=== PATIENT | female | born 1940 | race Two or more races ===

== ENCOUNTER 2021-01-01 14:38 | Inpatient (IN) | payer MEDICARE, OTHER ==
[~2021-01-01] VITALS: Ht 165.1 cm; Wt 97.5 kg
--- NOTE | 2021-01-01 14:50 | NUR ---
BIBRA FROM HOME TO ER BED 5. AAOX3. SOB AND SATTING @ 87% ON RA. PER EMS REPORT, PT HAS BEEN PROGRESSIVELY GETTING WORST IN THE PAST 5 DAYS. PT WAS NOTED 87% ON RA. PLACED ON O2 VIA NC @ 4LPM SATTING @ 98%. PT WAS REPORTED TO HAVE HAD COVID EXPOSURE RECENTLY. WAS AT THE BEDSIDE FOR EVAL. ORDERS RECEIVED, NOTED AND CARRIED OUT. IV LINE ESTABLISHED ON R HAND 20G. BLOOD DRAWN AND ON MONITOR
[2021-01-01 15:19] LABS: BASOPHILS # (AUTO) 0.1 K/uL (0.0-0.2); BASOPHILS % (AUTO) 0.6 % (0.0-2.0); HEMATOCRIT 33 % (33-45); HEMOGLOBIN 11.1 g/dL (11.5-14.8); LYMPHOCYTES # (AUTO) 0.8 K/uL (0.8-4.8); LYMPHOCYTES % (AUTO) 8.5 % (20.0-44.0); MEAN CORPUSCULAR HGB CONC 34 g/dl (31.0-36.0); MEAN CORPUSCULAR VOLUME 87 fL (82-100); MONOCYTES # (AUTO) 0.2 K/uL (0.1-1.30); MONOCYTES % (AUTO) 1.8 % (2.0-12.0); NEUTROPHILS # (AUTO) 8.1 K/uL (1.8-8.9); NEUTROPHILS % (AUTO) 89.1 % (43.0-81.0); PLATELET COUNT (AUTO) 243 K/uL (150-450); RED BLOOD CELL COUNT(AUTO) 3.78 MIL/uL (4.0-5.2); WHITE BLOOD COUNT (AUTO) 9.1 K/uL (4.3-11.0)
--- NOTE | 2021-01-01 15:30 | NUR ---
CALLED NURSING SUP FOR TELE BED.
[2021-01-01 15:38] LABS: ALBUMIN 2.5 g/dL (3.4-5.0); ALKALINE PHOSPHATASE 48 U/L (46-116); ASPARTATE AMINOTRANSFERASE 35 U/L (15-37); BILIRUBIN,DIRECT 0.1 mg/dL (0.0-0.2); BILIRUBIN,TOTAL 0.2 mg/dL (0.2-1.0); CALCIUM, SERUM 7.4 mg/dL (8.5-10.1); CARBON DIOXIDE 28 mmol/L (21-32); CHLORIDE 84 mmol/L (98-107); CREATININE 0.8 mg/dL (0.6-1.3); GLUCOSE 172 mg/dL (74-106); POTASSIUM 3.1 mmol/L (3.5-5.1); SODIUM SERUM 123 mmol/L (136-145); TOTAL PROTEIN, SERUM 7.2 g/dL (6.4-8.2); UREA NITROGEN, BLOOD 9 mg/dL (7-18)
[2021-01-01] MEDS ORDERED: ESOM40CA PO (15:52)
[2021-01-01] MEDS ORDERED: METO50TA16 PO (15:52)
[2021-01-01] MEDS ORDERED: FURO40TA5 PO (15:52)
[2021-01-01] MEDS ORDERED: PRED10TA PO (15:52)
[2021-01-01] MEDS ORDERED: AMLO-213 PO (15:52)
[2021-01-01] MEDS ORDERED: ATOR40TA PO (15:52)
[2021-01-01] MEDS ORDERED: GABA300C PO (15:52)
[2021-01-01] MEDS ORDERED: OLME1TAB22 PO (15:52)
[2021-01-01] MEDS ORDERED: ASCO500T22 PO (15:52)
[2021-01-01] MEDS ORDERED: LEVO88TA5 PO (15:52)
[2021-01-01] MEDS ORDERED: ASPI-1420 PO (15:52)
[2021-01-01 15:54] LABS: ALANINE AMINOTRANSFERASE 22 U/L (12-78)
[2021-01-01 16:03] LABS: D-DIMER 0.55 mg/L(FEU (0.17-0.50)
--- NOTE | 2021-01-01 16:27 | NUR ---
PAGED DR. NAIK.
[2021-01-01] MEDS ORDERED: FUROSEMIDE 40 MG/4 ML VIAL ONE (16:41)
[2021-01-01] MEDS ORDERED: FUROSEMIDE 40 MG/4 ML VIAL IV ONE (17:00)
--- NOTE | 2021-01-01 17:04 | NUR ---
ROOM ASSIGNEMENT: 117-1 TELE
[2021-01-01 17:08] LABS: BAND % (MANUAL) 2 % (0.0-5.0); LYMPHOCYTES % (MANUAL) 10 % (16-48); MONOCYTES % (MANUAL) 2 % (0-11.0); NEUTROPHILS % (MANUAL) 86 (42-76)
--- NOTE | 2021-01-01 17:55 | NUR ---
PT TRANSPROTED TO UNIT IN [facility] EMT AND RN AT BEDSIDE W/ ACLS PROTOCOL. REPORT GIVEN TO HAI CRAWLEY FOR SHAILESH. PT AMBULATED FROM [facility] TO BED W/O ASSIST ON STEADY GAIT.
[2021-01-01 18:00] VITALS: BP 118/64
[2021-01-01] MEDS ORDERED: ZOLPIDEM TARTRATE 5 MG TABLET PO PRN (18:30)
[2021-01-01] MEDS ORDERED: MAG HYDROX/AL HYDROX/SIMETH 30 ML UDC PO PRN (18:30)
[2021-01-01] MEDS ORDERED: MAGNESIUM HYDROXIDE 30 ML UDC PO PRN (18:30)
[2021-01-01] MEDS ORDERED: ACETAMINOPHEN 325 MG TABLET PO PRN (18:30)
[2021-01-01] MEDS ORDERED: Z GUARD REMEDY 2 OZ OINT TP PRN (18:30)
--- NOTE | 2021-01-01 19:30 | NUR ---
BIAS MACHINE OPERATOR NOTES PT RECEIVED A/O X3 BURUNDIAN SPEAKING ONLY UNDERSTANDS VERY BASIC DOMINICAN. PT IN BED NO APPARENT RESPIRATORY DISTRESS NOTED ON 4L OF OXYGEN VIA NASAL CANULA TOLERATING WELL. O2 94%. NO PAIN REPORTED OR OBSERVED AT THIS TIME. PT FULL SKIN ASSESSMENT WAS NOT ABLE TO BE DONE PT REFUSED TO TAKE OFF HER UNDER GARMENT RISK AND BENEFITS EXPLAINED X 3 REFUSED X3. PT ON TELE MONITOR SR. PT ORIENTED TO ROOM AND UNIT. BED IN LOWEST POSITION AND BILATERAL SIDE RAILS UP FOR SAFETY. HOB ELEVATED FOR ASPIRATION PRECAUTIONS. PT BILATERAL LUNG SOUNDS AUSCULTATED NOTED FINE CRACKLES. NO IV SITE PRESENT INSERTED IV ONE ATTEMPT FOREARM 2OG FLUSHING WELL SALINE LOCKED. CALL LIGHT WITHIN REACH PT INSTRUCTED TO USE CALL LIGHT TO CALL NURSE AND SUPERVISOR COIN MACHINE FOR ANY THING SHE NEEDS PT ON DROPLET PRECAUTIONS PRECAUTIONS MAINTAINED AND FOLLOWED AT ALL TIMES. WILL CONTINUE TO MONITOR PT.
[2021-01-01] MEDS: CEFTRIAXONE 1 G in IV D5W 50 ML IV SCH (20:38)
[2021-01-01] MEDS: AZITHROMYCIN 500 MG in IV D5W 250 ML IV SCH (21:22)
[2021-01-01] MEDS: ENOXAPARIN SODIUM 40 MG/0.4 ML DISP.SYRIN SQ SCH (21:23)
[2021-01-01] MEDS ORDERED: POTASSIUM CHLORIDE 20 MEQ TAB.PRT.SR PO ONE (22:36)
[2021-01-02] MEDS: ONDANSETRON HCL/PF 4 MG/2 ML VIAL IVP PRN ×2 (01:35→11:33)
[2021-01-02 02:47] VITALS: BP 158/93
[2021-01-02 04:00] VITALS: BP 143/78
[2021-01-02 07:05] LABS: BASOPHILS % (AUTO) 0.2 % (0.0-2.0); EOSINOPHILS % (AUTO) 0.1 % (0.0-6.0); HEMATOCRIT 33 % (33-45); LYMPHOCYTES # (AUTO) 1.3 K/uL (0.8-4.8); LYMPHOCYTES % (AUTO) 14.3 % (20.0-44.0); MEAN CORPUSCULAR HGB CONC 34 g/dl (31.0-36.0); MEAN CORPUSCULAR VOLUME 87 fL (82-100); MONOCYTES # (AUTO) 0.2 K/uL (0.1-1.30); MONOCYTES % (AUTO) 2.4 % (2.0-12.0); NEUTROPHILS # (AUTO) 7.4 K/uL (1.8-8.9); PLATELET COUNT (AUTO) 245 K/uL (150-450); RED BLOOD CELL COUNT(AUTO) 3.76 MIL/uL (4.0-5.2); WHITE BLOOD COUNT (AUTO) 8.9 K/uL (4.3-11.0)
[2021-01-02 07:39] LABS: CALCIUM, SERUM 7.5 mg/dL (8.5-10.1); CREATININE 0.9 mg/dL (0.6-1.3); MAGNESIUM 1.4 mg/dL (1.8-2.4); PHOSPHORUS 1.7 mg/dL (2.5-4.9); POTASSIUM 3.1 mmol/L (3.5-5.1)
--- NOTE | 2021-01-02 07:45 | NUR ---
RN NOTE PATIENT IS IN BED WITH HOB AT SEMI FOWLERS POSITION. PATIENT IS ON 4L NC WITH NO SIGNS OF RESPIRATORY DISTRESS. PATIENT IS AOX4. RFA #20G IS PATENT AND INTACT. BED IS LOCKED IN THE LOWEST POSITION, 3 GUARD RAILS RAISED, CALL [place] WITHIN REACH, AND ALL HOSPITAL SAFETY PRECAUTIONS ARE BEING FOLLOWED. WILL CONTINUE TO MONITOR THROUGHOUT SHIFT.
[2021-01-02 07:51] LABS: THYROID STIMULATING HORMONE 3.373 uIU/mL (0.358-3.74)
[2021-01-02 08:00] VITALS: BP 167/78
[2021-01-02] MEDS: FUROSEMIDE 40 MG/4 ML VIAL IV SCH (08:29)
[2021-01-02] MEDS: DEXAMETHASONE SOD PHOSPHATE 10 MG/ML VIAL IV SCH (08:29)
[2021-01-02] MEDS: PANTOPRAZOLE 40 MG TABLET.DR PO SCH (08:29)
[2021-01-02] MEDS: POTASSIUM CHLORIDE 20 MEQ TAB.PRT.SR PO SCH ×2 (09:30→09:40)
[2021-01-02] MEDS: K PHOS NEUTRAL 250 MG TABLET PO ONE ×2 (09:30→09:40)
[2021-01-02] MEDS: Magnesium 1GM/D5W 100ML PREMIX 100 ML IV SCH ×4 (10:22→13:32)
--- NOTE | 2021-01-02 11:37 | NUR ---
RN NOTE PATIENT COMPLAINING OF NAUSEA. ADMINISTERED PRN ZOFRAN. WILL CONTINUE TO MONITOR.
[2021-01-02 12:00] VITALS: BP 166/82
--- NOTE | 2021-01-02 12:53 | NUR ---
RN NOTE NOTIFIED DR. NAIK OF BP 166/80. OKAY TO PLACE ORDER FOR HYDRALAZINE 25MG PO Q4H.
[2021-01-02] MEDS: hydrALAZINE HCL 25 MG TABLET PO PRN (13:04)
[2021-01-02 16:00] VITALS: BP 146/76
[2021-01-02 16:34] LABS: IRON, SERUM 32 ug/dl (50-175); TOTAL IRON BINDING CAPACITY 204 ug/dl (250-450)
[2021-01-02 16:42] LABS: FERRITIN 491 ng/mL (8-388)
[2021-01-02 16:43] LABS: C-REACTIVE PROTEIN < 0.2 mg/dL (0.0-0.9)
[2021-01-02 16:48] LABS: THYROID STIMULATING HORMONE 3.362 uIU/mL (0.358-3.74)
[2021-01-02] MEDS ORDERED: REMDESIVIR (CHARGED) 200 MG, *LOADING DOSE 1 EA in IV NS 0.9% 210 ML IV ONE (18:00)
--- NOTE | 2021-01-02 18:52 | NUR ---
RN NOTE PATIENT IS IN BED WITH HOB AT SEMI FOWLERS POSITION. PATIENT IS ON 4L NC WITH NO SIGNS OF RESPIRATORY DISTRESS. PATIENT IS AOX4. RFA #20G IS PATENT AND INTACT. BED IS LOCKED IN THE LOWEST POSITION, 3 GUARD RAILS RAISED, CALL [place] WITHIN REACH, AND ALL HOSPITAL SAFETY PRECAUTIONS ARE BEING FOLLOWED. ALL DUE MEDS GIVEN AND PATIENT REMAINED STABLE THROUGHOUT SHIFT. WILL ENDORSE TO PRODUCTION CELL LEADER RN.
[2021-01-02] MEDS: AZITHROMYCIN 500 MG in IV D5W 250 ML IV SCH (19:29)
[2021-01-02 20:00] VITALS: BP 150/82
[2021-01-02] MEDS: CEFTRIAXONE 1 G in IV D5W 50 ML IV SCH (20:43)
[2021-01-02] MEDS: ENOXAPARIN SODIUM 40 MG/0.4 ML DISP.SYRIN SQ SCH (20:45)
[2021-01-03] VITALS: BP 150/82
[2021-01-03 04:00] VITALS: BP 136/73
[2021-01-03 06:18] LABS: BASOPHILS % (AUTO) 0.2 % (0.0-2.0); EOSINOPHILS % (AUTO) 0.1 % (0.0-6.0); HEMATOCRIT 32 % (33-45); LYMPHOCYTES # (AUTO) 0.9 K/uL (0.8-4.8); LYMPHOCYTES % (AUTO) 13.3 % (20.0-44.0); MEAN CORPUSCULAR HGB CONC 34 g/dl (31.0-36.0); MEAN CORPUSCULAR VOLUME 86 fL (82-100); MONOCYTES # (AUTO) 0.3 K/uL (0.1-1.30); NEUTROPHILS # (AUTO) 5.5 K/uL (1.8-8.9); NEUTROPHILS % (AUTO) 82.4 % (43.0-81.0); PLATELET COUNT (AUTO) 245 K/uL (150-450); RED BLOOD CELL COUNT(AUTO) 3.75 MIL/uL (4.0-5.2); WHITE BLOOD COUNT (AUTO) 6.7 K/uL (4.3-11.0)
[2021-01-03 07:18] LABS: ALBUMIN 2.2 g/dL (3.4-5.0); BILIRUBIN,TOTAL 0.2 mg/dL (0.2-1.0); CALCIUM, SERUM 7.4 mg/dL (8.5-10.1); MAGNESIUM 2.5 mg/dL (1.8-2.4); PHOSPHORUS 2.2 mg/dL (2.5-4.9); POTASSIUM 3.1 mmol/L (3.5-5.1); TOTAL PROTEIN, SERUM 6.9 g/dL (6.4-8.2)
[2021-01-03 08:00] VITALS: BP 123/73
[2021-01-03] MEDS: FUROSEMIDE 40 MG/4 ML VIAL IV SCH (08:19)
[2021-01-03] MEDS: PANTOPRAZOLE 40 MG TABLET.DR PO SCH (08:19)
[2021-01-03] MEDS: DEXAMETHASONE SOD PHOSPHATE 10 MG/ML VIAL IV SCH (08:19)
[2021-01-03] MEDS ORDERED: K PHOS NEUTRAL 250 MG TABLET PO ONE (08:30)
[2021-01-03] MEDS ORDERED: POTASSIUM CHLORIDE 20 MEQ TAB.PRT.SR PO ONE (08:30)
[2021-01-03] MEDS ORDERED: NEUTRA PHOS 1 POWD.PACKET PO ONE (09:00)
[2021-01-03] MEDS ORDERED: POTASSIUM CHLORIDE 20 MEQ POWDER PACKET PO ONE (09:00)
[2021-01-03 09:41] LABS: CREATININE 0.9 mg/dL (0.6-1.3)
[2021-01-03 12:00] VITALS: BP 122/96
[2021-01-03] MEDS: ONDANSETRON HCL/PF 4 MG/2 ML VIAL IVP PRN (13:07)
[2021-01-03 16:00] VITALS: BP 113/66
--- NOTE | 2021-01-03 16:00 | NUR ---
SPO2 LEVEL ON R/A SPO2 LESS < 87% ON R/A AT REST
[2021-01-03] MEDS: REMDESIVIR (CHARGED) 100 MG in IV NS 0.9% 230 ML IV SCH (18:01)
--- NOTE | 2021-01-03 18:40 | NUR ---
RN NOTE PATIENT IS IN BED WITH HOB AT SEMI FOWLERS POSITION. PATIENT IS ON 4L NC WITH NO SIGNS OF RESPIRATORY DISTRESS. PATIENT IS AOX4. BED IS LOCKED IN THE LOWEST POSITION, 3 GUARD RAILS RAISED, CALL [place] WITHIN REACH, AND ALL HOSPITAL SAFETY PRECAUTIONS ARE BEING FOLLOWED. ALL DUE MEDS GIVEN AND PATIENT REMAINED STABLE THROUGHOUT SHIFT. WILL ENDORSE TO MARINE EQUIPMENT RESEARCH ENGINEER RN.
[2021-01-03 20:00] VITALS: BP 142/75
--- NOTE | 2021-01-03 21:00 | NUR ---
RN NOTES, MIDLINE NURSE AT PATIENT'S ROOM, SATISFACTORY INSERTION OF CARI MIDLINE 18G, PATENT AND INTACT, PATIENT TOLERATED PROCEDURE WELL.
[2021-01-03] MEDS: AZITHROMYCIN 500 MG in IV D5W 250 ML IV SCH (21:09)
[2021-01-03] MEDS: ENOXAPARIN SODIUM 40 MG/0.4 ML DISP.SYRIN SQ SCH (21:12)
[2021-01-03] MEDS: CEFTRIAXONE 1 G in IV D5W 50 ML IV SCH (21:59)
[2021-01-04] VITALS (7 sets, daily range): BP systolic 122–150; BP diastolic 66–81
--- NOTE | 2021-01-04 06:34 | NUR ---
RN NOTE PATIENT IS IN BED AOX4, NO SOB/ACUTE DISTRESS NOTED, WITH OPTIMAL O2 SAT LEVEL, ,NO SIGNIFICANT CHANGE IN CONDITION DURING THE NIGHT, BED IS LOCKED IN THE LOWEST POSITION, CALL LIGHT WITHIN REACH, REMAINED STABLE THROUGHOUT SHIFT, WILL ENDORSE CONTINUITY OF CARE TO ONCOMING NURSE.
[2021-01-04 07:30] LABS: BASOPHILS % (AUTO) 0.3 % (0.0-2.0); EOSINOPHILS % (AUTO) 0.4 % (0.0-6.0); HEMATOCRIT 34 % (33-45); HEMOGLOBIN 11.4 g/dL (11.5-14.8); LYMPHOCYTES # (AUTO) 1.2 K/uL (0.8-4.8); LYMPHOCYTES % (AUTO) 14.2 % (20.0-44.0); MEAN CORPUSCULAR HGB CONC 33 g/dl (31.0-36.0); MEAN CORPUSCULAR VOLUME 87 fL (82-100); MONOCYTES # (AUTO) 0.4 K/uL (0.1-1.30); MONOCYTES % (AUTO) 4.7 % (2.0-12.0); NEUTROPHILS # (AUTO) 6.8 K/uL (1.8-8.9); NEUTROPHILS % (AUTO) 80.4 % (43.0-81.0); PLATELET COUNT (AUTO) 357 K/uL (150-450); RED BLOOD CELL COUNT(AUTO) 3.94 MIL/uL (4.0-5.2); WHITE BLOOD COUNT (AUTO) 8.5 K/uL (4.3-11.0)
--- NOTE | 2021-01-04 08:00 | NUR ---
SPRAYING MACHINE OPERATOR OPENING NOTES RECEIVED PATIENT AWAKE IN BED. ALERT AND ORIENTED X3. NO SIGNS OR SYMPTOMS OF DISTRESS NOTED. NO SOB. NO COMPLAINTS OF PAIN AT THIS TIME. IV ACCESS CARI MIDLINE PATENT AND INTACT. SAFETY MEASURES IN PLACE WITH BED AT LOW POSITION, SIDE RAILS UP X2. CALL LIGHT IS WITHIN REACH. WILL CONTINUE TO MONITOR PATIENT THROUGHOUT SHIFT.
[2021-01-04 08:15] LABS: ALBUMIN 2.1 g/dL (3.4-5.0); BILIRUBIN,DIRECT 0.1 mg/dL (0.0-0.2); BILIRUBIN,TOTAL 0.2 mg/dL (0.2-1.0); CREATININE 0.9 mg/dL (0.6-1.3); MAGNESIUM 2.2 mg/dL (1.8-2.4); PHOSPHORUS 1.4 mg/dL (2.5-4.9); TOTAL PROTEIN, SERUM 6.4 g/dL (6.4-8.2)
[2021-01-04 08:21] LABS: POTASSIUM 2.8 mmol/L (3.5-5.1)
[2021-01-04] MEDS: PANTOPRAZOLE 40 MG TABLET.DR PO SCH (08:58)
[2021-01-04] MEDS ORDERED: K PHOS NEUTRAL 250 MG TABLET PO ONE (09:00)
[2021-01-04] MEDS: POTASSIUM CHLORIDE 20 MEQ TAB.PRT.SR PO SCH ×3 (09:10→11:05)
[2021-01-04] MEDS: DEXAMETHASONE SOD PHOSPHATE 10 MG/ML VIAL IV SCH (09:11)
--- NOTE | 2021-01-04 10:12 | NUR ---
potassium was 2.5 was notified waiting for returning call back
[2021-01-04] MEDS: POTASSIUM CL. PREMIX PERIPHER. 50 ML IV SCH ×4 (11:49→15:02)
[2021-01-04] MEDS ORDERED: POTASSIUM CHLORIDE 20 MEQ TAB.PRT.SR PO ONE (12:00)
[2021-01-04] MEDS: REMDESIVIR (CHARGED) 100 MG in IV NS 0.9% 230 ML IV SCH (18:09)
--- NOTE | 2021-01-04 18:43 | NUR ---
TIPPLE MECHANIC CLOSING NOTES PATIENT IS AWAKE IN BED. ALERT AND ORIENTED X 4, WELSH SPEAKING. NO SIGNS OR SYMPTOMS OF DISTRESS NOTED. NO SOB. NO COMPLAINTS OF PAIN AT THIS TIME. IV ACCESS CARI MIDLINE PATENT AND INTACT. SAFETY MEASURES IN PLACE WITH BED AT LOW POSITION, SIDE RAILS UP X2. CALL LIGHT AND BED SIDE TABLE IS WITHIN REACH. ALL NEEDS MET THROUGHOUT SHIFT. WILL ENDORSE CONTINUITY OF CARE TO NEXT SHIFT NURSE.
[2021-01-04] MEDS: AZITHROMYCIN 500 MG in IV D5W 250 ML IV SCH (19:45)
--- NOTE | 2021-01-04 20:01 | NUR ---
RN NOTE PATIENT ALERT AND ORIENTED X3. ON O2 4L VIA NASAL CANNULA, NO SIGNS OF SHORTNESS OF BREATH. NO SIGNS OF DISCOMFORT. IV ACCESS ON CARI MIDLINE, PATENT AND INTACT. BED LOCKED AND IN LOWEST POSITION. CALL LIGHT WITHIN REACH. ALL NEEDS ATTENDED PROMPTLY.
[2021-01-04] MEDS: CEFTRIAXONE 1 G in IV D5W 50 ML IV SCH (20:45)
[2021-01-04] MEDS: ENOXAPARIN SODIUM 40 MG/0.4 ML DISP.SYRIN SQ SCH (20:47)
[2021-01-05] VITALS: BP 139/70
[2021-01-05 04:00] VITALS: BP 128/78
[2021-01-05 06:23] LABS: BASOPHILS % (AUTO) 0.3 % (0.0-2.0); EOSINOPHILS % (AUTO) 1.2 % (0.0-6.0); HEMATOCRIT 34 % (33-45); HEMOGLOBIN 11.3 g/dL (11.5-14.8); LYMPHOCYTES # (AUTO) 1.9 K/uL (0.8-4.8); LYMPHOCYTES % (AUTO) 17.7 % (20.0-44.0); MEAN CORPUSCULAR HGB CONC 33 g/dl (31.0-36.0); MEAN CORPUSCULAR VOLUME 88 fL (82-100); MONOCYTES # (AUTO) 0.5 K/uL (0.1-1.30); MONOCYTES % (AUTO) 5.2 % (2.0-12.0); NEUTROPHILS % (AUTO) 75.6 % (43.0-81.0); PLATELET COUNT (AUTO) 397 K/uL (150-450); WHITE BLOOD COUNT (AUTO) 10.5 K/uL (4.3-11.0)
[2021-01-05 06:34] LABS: ALBUMIN 2.2 g/dL (3.4-5.0); BILIRUBIN,TOTAL 0.2 mg/dL (0.2-1.0); CALCIUM, SERUM 7.4 mg/dL (8.5-10.1); CREATININE 0.8 mg/dL (0.6-1.3); MAGNESIUM 2.4 mg/dL (1.8-2.4); PHOSPHORUS 1.4 mg/dL (2.5-4.9); POTASSIUM 3.7 mmol/L (3.5-5.1)
--- NOTE | 2021-01-05 06:50 | NUR ---
RN NOTE PATIENT ALERT AND ORIENTED X3. ON O2 4L VIA NASAL CANNULA, NO SIGNS OF SHORTNESS OF BREATH. IV ACCESS ON CARI MIDLINE, PATENT AND INTACT. NO SIGNIFICANT CHANGES DURING THIS SHIFT. BED LOCKED AND IN LOWEST POSITION. CALL LIGHT WITHIN REACH. WILL ENDORSE TO AM SHIFT.
--- NOTE | 2021-01-05 07:30 | NUR ---
RN OPENING NOTES Patient is alert and oriented. Breathing even and unlabored. Lung sounds cta. Patient is on 4 lpm via n/c with 02 saturation of 98% No c/o pain or discomfort. HOB kept elevated. Call light with in reach.
[2021-01-05 08:00] VITALS: BP 150/74
[2021-01-05] MEDS ORDERED: Sodium Phosphate 15 MMOL in IV NS 0.9% 245 ML IV SCH (08:30)
[2021-01-05] MEDS ORDERED: POTASSIUM CHLORIDE 20 MEQ TAB.PRT.SR PO ONE (09:30)
[2021-01-05] MEDS: DEXAMETHASONE SOD PHOSPHATE 10 MG/ML VIAL IV SCH (09:34)
[2021-01-05] MEDS: FUROSEMIDE 20 MG/2 ML VIAL IV SCH (09:34)
[2021-01-05] MEDS: PANTOPRAZOLE 40 MG TABLET.DR PO SCH (09:35)
[2021-01-05 12:00] VITALS: BP 150/92
[2021-01-05] MEDS ORDERED: Sodium Phosphate 30 MMOL in IV NS 0.9% 250 ML IV SCH (13:00)
[2021-01-05 16:05] VITALS: BP 159/76
[2021-01-05] MEDS: REMDESIVIR (CHARGED) 100 MG in IV NS 0.9% 230 ML IV SCH (18:00)
--- NOTE | 2021-01-05 18:54 | NUR ---
RN OPENING NOTES Patient is alert and oriented. Breathing even and unlabored. Lung sounds cta. Patient is on 4 lpm via n/c with 02 saturation of 98% No c/o pain or discomfort. HOB kept elevated. Call light with in reach.Will endorse to next shift for SHAILESH. Addendum: 01/05/21 at 1856 by MELISSA LUCIA RN ADDENDUM RN CLOSING NOTES
--- NOTE | 2021-01-05 19:50 | NUR ---
RN NOTE PATIENT ALERT AND ORIENTED X3. CONTINUES ON O2 4L VIA NASAL CANNULA, NO SIGNS OF RESPIRATORY DISTRESS. NO SIGNS OF DISCOMFORT AT THIS TIME. WITH CARI MIDLINE, PATENT AND INTACT. NO SIGNS OF INFILTRATION. BED LOCKED AND IN LOWEST POSITION. CALL LIGHT WITHIN REACH. ALL NEEDS ANTICIPATED.
[2021-01-05 20:00] VITALS: BP 158/77
[2021-01-05] MEDS: AZITHROMYCIN 500 MG in IV D5W 250 ML IV SCH (20:01)
[2021-01-05] MEDS: CEFTRIAXONE 1 G in IV D5W 50 ML IV SCH (21:15)
[2021-01-05] MEDS: ENOXAPARIN SODIUM 40 MG/0.4 ML DISP.SYRIN SQ SCH (21:17)
[2021-01-06] VITALS: BP 164/79
[2021-01-06 04:00] VITALS: BP 148/69
[2021-01-06 06:32] LABS: BASOPHILS % (AUTO) 0.1 % (0.0-2.0); HEMATOCRIT 31 % (33-45); HEMOGLOBIN 10.3 g/dL (11.5-14.8); LYMPHOCYTES # (AUTO) 1.6 K/uL (0.8-4.8); LYMPHOCYTES % (AUTO) 16.1 % (20.0-44.0); MEAN CORPUSCULAR HGB CONC 34 g/dl (31.0-36.0); MEAN CORPUSCULAR VOLUME 88 fL (82-100); MONOCYTES # (AUTO) 0.6 K/uL (0.1-1.30); MONOCYTES % (AUTO) 6.3 % (2.0-12.0); NEUTROPHILS # (AUTO) 7.3 K/uL (1.8-8.9); NEUTROPHILS % (AUTO) 75.5 % (43.0-81.0); PLATELET COUNT (AUTO) 398 K/uL (150-450); WHITE BLOOD COUNT (AUTO) 9.7 K/uL (4.3-11.0)
--- NOTE | 2021-01-06 06:53 | NUR ---
RN NOTE PATIENT RESTING IN BED COMFORTABLY. ON O2 4L VIA NASAL CANNULA, NO SIGNS OF RESPIRATORY DISTRESS. WITH CARI MIDLINE, PATENT AND INTACT. NO SIGNS OF INFILTRATION. ASSISTED PATIENT TO RESTROOM X2. ALL NEEDS ATTENDED PROMPTLY. NO SIGNIFICANT CHANGES DURING THIS SHIFT. BED LOCKED AND IN LOWEST POSITION. CALL LIGHT WITHIN REACH. WILL ENDORSE TO AM SHIFT.
[2021-01-06 07:31] LABS: BILIRUBIN,TOTAL 0.1 mg/dL (0.2-1.0); CREATININE 0.7 mg/dL (0.6-1.3); POTASSIUM 3.8 mmol/L (3.5-5.1); TOTAL PROTEIN, SERUM 6.5 g/dL (6.4-8.2)
--- NOTE | 2021-01-06 07:44 | NUR ---
RN OPENING NOTES Patient is alert and oriented. Breathing even and unlabored. Lung sounds cta. Patient is on 4 lpm via n/c with 02 saturation of 96% No c/o pain or discomfort. HOB kept elevated. Call light with in reach. Will continue to monitor.
[2021-01-06 08:00] VITALS: BP 152/80
[2021-01-06] MEDS: FUROSEMIDE 20 MG/2 ML VIAL IV SCH (08:25)
[2021-01-06] MEDS: DEXAMETHASONE SOD PHOSPHATE 10 MG/ML VIAL IV SCH (08:26)
[2021-01-06] MEDS: PANTOPRAZOLE 40 MG TABLET.DR PO SCH (08:26)
[2021-01-06] MEDS ORDERED: FUROSEMIDE 20 MG/2 ML VIAL IV SCH (09:00)
[2021-01-06] MEDS ORDERED: FUROSEMIDE 40 MG TABLET PO SCH (09:00)
[2021-01-06] MEDS: ASPIRIN EC 81 MG TABLET.DR PO SCH (10:12)
[2021-01-06] MEDS: AMLODIPINE BESYLATE 10 MG TABLET PO SCH (10:12)
[2021-01-06] MEDS: METOPROLOL TARTRATE 50 MG TABLET PO SCH ×2 (10:12→17:37)
[2021-01-06] MEDS: ASCORBIC ACID 500 MG TABLET PO SCH (10:12)
[2021-01-06] MEDS: GABAPENTIN 300 MG CAPSULE PO SCH ×2 (10:13→17:37)
[2021-01-06] MEDS: LEVOTHYROXINE SODIUM 88 MCG TABLET PO SCH (10:13)
[2021-01-06] MEDS ORDERED: FUROSEMIDE 20 MG/2 ML VIAL IV ONE (11:00)
[2021-01-06 12:00] VITALS: BP 154/80
[2021-01-06 16:00] VITALS: BP 139/79
[2021-01-06] MEDS: REMDESIVIR (CHARGED) 100 MG in IV NS 0.9% 230 ML IV SCH (17:41)
--- NOTE | 2021-01-06 19:03 | NUR ---
RN OPENING NOTES Patient is alert and oriented. Patient sitting at the edge of bed. Family provided breakfast , lunch and dinner and patient had 75 % intake of all meals provided. Breathing even and unlabored. Lung sounds cta. Patient is on 4 lpm via n/c with 02 saturation of 95% No c/o pain or discomfort. HOB kept elevated. Call light with in reach. Will continue to monitor. Addendum: 01/06/21 at 1904 by MELISSA LUCIA RN ADDENDUM CLOSING NOTES
--- NOTE | 2021-01-06 19:23 | NUR ---
Rn note spoke with giselle granddaughter, regarding pt and possible discharge. no order noted yet, per giselle would like to be notified as soon as possible for any new info and plan of care. [phone]
--- NOTE | 2021-01-06 19:45 | NUR ---
RN OPENING NOTE RECD PT IN BED. AWAKE A/O X4. FRISIAN SPEAKING. MINIMAL FRENCH, ABLE TO MAKE NEEDS KNOWN. PT IS ON ISOLATION FOR POSITIVE COVID RESULT. PT IS ON 3L OF O2 VIA NASAL CANNULA, PT TOLERATING, NO SOB OR RESP DISTRESS NOTED. PT IS ON TELEMETRY MONITORING. PT IS NSR WITH HR OF 65 AT THIS TIME. PT DENIES PAIN. PT HAS IV CARI MIDLINE, FLUSHED ASEPTICALLY. NO S/S OF INFILTRATION NOTED. PT IS AMBULATORY WITH STEADY GAIT ALL NEEDS ATTENDED AT THIS TIME. SAFETY MEASURES IN PLACE. HOB ELEVATED. SIDE RAILS UP X2 BED LOCKED IN LOWEST POSITION, BED ALARM ON. CALL LIGHT WITHIN REACH, WILL CONT TO MONITOR THROUGHOUT SHIFT.
[2021-01-06 20:00] VITALS: BP 139/79
[2021-01-06] MEDS: ENOXAPARIN SODIUM 40 MG/0.4 ML DISP.SYRIN SQ SCH (21:18)
[2021-01-06] MEDS ORDERED: ATORVASTATIN 40 MG TABLET PO SCH (22:00)
[2021-01-07] VITALS: BP 145/74
--- NOTE | 2021-01-07 01:30 | NUR ---
RN NOTE O2 TITRATED DOWN TO 2L AT THIS TIME O2 97% TOLERATING WELL, NO RES DISTRESS BREATHING EVEN AND UNLABORED. WILL CONT TO MONITOR.
[2021-01-07 04:00] VITALS: BP 163/80
[2021-01-07] MEDS: hydrALAZINE HCL 25 MG TABLET PO PRN (04:16)
--- NOTE | 2021-01-07 04:23 | NUR ---
RN NOTE PT BP 173/85 PRN HYDRALAZINE 25MG GIVEN ORDERED. WILL CONTINUE TO MONITOR. Addendum: 01/07/21 at 0539 by DONALD CHOE RN ON REASSESSMENT, PT BP 163/80. MEDICATION EFFECTIVE, PT DENIES PAIN. PT HAS BP MEDS SCHEDULED IN THE MORNING. CLERICAL SUPERVISOR MADE AWARE. WILL CONT TO MONITOR PT FOR CHANGE OF CONDITION, CLOSELY.
[2021-01-07 06:03] LABS: ALBUMIN 2.2 g/dL (3.4-5.0); BILIRUBIN,TOTAL 0.2 mg/dL (0.2-1.0); CALCIUM, SERUM 7.4 mg/dL (8.5-10.1); CREATININE 0.8 mg/dL (0.6-1.3); PHOSPHORUS 1.7 mg/dL (2.5-4.9); POTASSIUM 4.3 mmol/L (3.5-5.1); TOTAL PROTEIN, SERUM 6.9 g/dL (6.4-8.2)
[2021-01-07 06:29] LABS: BASOPHILS % (AUTO) 0.2 % (0.0-2.0); EOSINOPHILS % (AUTO) 2.1 % (0.0-6.0); HEMATOCRIT 33 % (33-45); LYMPHOCYTES # (AUTO) 1.7 K/uL (0.8-4.8); LYMPHOCYTES % (AUTO) 21.4 % (20.0-44.0); MEAN CORPUSCULAR HGB CONC 33 g/dl (31.0-36.0); MEAN CORPUSCULAR VOLUME 88 fL (82-100); MONOCYTES # (AUTO) 0.6 K/uL (0.1-1.30); MONOCYTES % (AUTO) 7.6 % (2.0-12.0); NEUTROPHILS # (AUTO) 5.4 K/uL (1.8-8.9); NEUTROPHILS % (AUTO) 68.7 % (43.0-81.0); PLATELET COUNT (AUTO) 430 K/uL (150-450); WHITE BLOOD COUNT (AUTO) 7.8 K/uL (4.3-11.0)
--- NOTE | 2021-01-07 06:49 | NUR ---
RN CLOSING NOTE PT REMAINS IN BED RESTING, NO SIGNIFICANT CHANGES. REMAINS ON 1L OF O2 VIA NASAL CANNULA, NO RESP DISTRESS OR SOB NOTED. PT IS NSR HEART RATE OF 80 AT THIS TIME. ALL NEEDS ATTENDED. DENIES PAIN. ALL DUE MEDS GIVEN. SAFETY MEASURES IN PLACE. HOB ELEVATED TOLERATED. SIDE RAILS UP X2. BED LOCKED IN LOWEST POSITION. CALL LIGHT WITHIN REACH. WILL ENDORSE TO DAY SHIFT NURSE FOR CONTINUATION OF CARE.
--- NOTE | 2021-01-07 07:48 | NUR ---
RN NOTE PATIENT IS IN BED WITH HOB AT SEMI FOWLERS POSITION. PATIENT IS ON 1L NC WITH NO SIGNS OF DISTRESS. PATIENT IS AOX4. CARI MIDLINE IS PATENT AND INTACT. BED IS LOCKED IN THE LOWEST POSITION, 3 GUARD RAILS RAISED, CALL [place] WITHIN REACH, AND ALL HOSPITAL SAFETY PRECAUTIONS ARE BEING FOLLOWED. WILL CONTINUE TO MONITOR THROUGHOUT SHIFT.
[2021-01-07 08:00] VITALS: BP 170/74
[2021-01-07] MEDS: LEVOTHYROXINE SODIUM 88 MCG TABLET PO SCH (08:04)
[2021-01-07] MEDS: ASPIRIN EC 81 MG TABLET.DR PO SCH (08:04)
[2021-01-07] MEDS: ASCORBIC ACID 500 MG TABLET PO SCH (08:04)
[2021-01-07] MEDS: GABAPENTIN 300 MG CAPSULE PO SCH (08:04)
[2021-01-07] MEDS: DEXAMETHASONE SOD PHOSPHATE 10 MG/ML VIAL IV SCH (08:04)
[2021-01-07 08:05] VITALS: BP 170/74
[2021-01-07] MEDS: METOPROLOL TARTRATE 50 MG TABLET PO SCH (08:05)
[2021-01-07] MEDS: PANTOPRAZOLE 40 MG TABLET.DR PO SCH (08:05)
[2021-01-07] MEDS: AMLODIPINE BESYLATE 10 MG TABLET PO SCH (08:05)
[2021-01-07] MEDS ORDERED: NEUTRA PHOS 1 POWD.PACKET PO SCH (08:30)
[2021-01-07] MEDS ORDERED: PRED10TA PO (08:53)
[2021-01-07] MEDS ORDERED: FUROSEMIDE 40 MG/4 ML VIAL IV SCH (09:00)
--- NOTE | 2021-01-07 13:04 | NUR ---
RN NOTE PATIENT DISCHARGED IN STABLE CONDITION WITH GRANDDAUGHTER LILY.
== END 2021-01-07 13:00 | disposition home or self-care (01) | DRG 177 ==
LOC: ER 14:47 → TELE1 17:28
PROVIDERS: ADMIT Student in an Organized Health Care Education/Training Program; ATTEND Internal Medicine
PROC: XW033E5 Introduction of Remdesivir Anti-infective into Peripheral Vein, Percutaneous Approach, New Technology Group 5 (ICD-10-PCS; principal; 2021-01-02)
PROC: 05H533Z Insertion of Infusion Device into Right Subclavian Vein, Percutaneous Approach (ICD-10-PCS; 2021-01-03)
PROC: B546ZZA Ultrasonography of Right Subclavian Vein, Guidance (ICD-10-PCS; 2021-01-03)
DX: U07.1 COVID-19 (principal); J96.01 Acute respiratory failure with hypoxia; J12.82 Pneumonia due to coronavirus disease 2019; I50.31 Acute diastolic (congestive) heart failure; E87.1 Hypo-osmolality and hyponatremia; E44.0 Moderate protein-calorie malnutrition; I11.0 Hypertensive heart disease with heart failure; E83.39 Other disorders of phosphorus metabolism; E03.9 Hypothyroidism, unspecified; D64.9 Anemia, unspecified; E78.5 Hyperlipidemia, unspecified; E87.6 Hypokalemia; M19.90 Unspecified osteoarthritis, unspecified site; Z68.35 Body mass index [BMI] 35.0-35.9, adult; E66.01 Morbid (severe) obesity due to excess calories
CPT/HCPCS: 36415; 71045-TC; 80048-TC; 80053-TC; 80076-TC; 82533; 82728-TC; 83540-TC; 83605-TC; 83615-TC; 83735-TC; 83880; 84100-TC; 84439-TC; 84443-TC; 84484-TC; 85025-TC; 85378-TC; 85385-TC; 85610-TC; 86140-TC; 87040-TC; 87081-TC; 93307-TC; A4216; A9563; G0378; J0456; J0696; J1100; J1650; J1940; J2405; J3475; J3480; J7040; J7050; J7060; U0003

== ENCOUNTER 2024-06-12 19:41 | Inpatient (IN) | payer MEDICARE, OTHER ==
[~2024-06-12] VITALS: Ht 165.1 cm; Wt 104.3 kg
[~2024-06-12 19:41] MED LIST: AMLO-213 PO; ASCO500T22 PO; ASPI-1420 PO; ATOR40TA PO; ESOM40CA PO; FURO40TA5 PO; GABA300C PO; LEVO88TA5 PO; METO50TA16 PO; OLME1TAB22 PO; PRED10TA PO
[2024-06-12 20:30] LABS: BASOPHILS % (AUTO) 0.4 % (0.0-2.0); EOSINOPHILS # (AUTO) 0.2 K/uL (0.0-0.7); EOSINOPHILS % (AUTO) 2.1 % (0.0-6.0); HEMATOCRIT 33 % (33-45); HEMOGLOBIN 10.9 g/dL (11.5-14.8); LYMPHOCYTES # (AUTO) 0.4 K/uL (0.8-4.8); LYMPHOCYTES % (AUTO) 4.8 % (20.0-44.0); MEAN CORPUSCULAR HEMOGLOBIN 30 PG (26.0-33.0); MEAN CORPUSCULAR HGB CONC 34 g/dl (31.0-36.0); MEAN CORPUSCULAR VOLUME 91 fL (82-100); MONOCYTES # (AUTO) 0.5 K/uL (0.1-1.30); MONOCYTES % (AUTO) 6.4 % (2.0-12.0); NEUTROPHILS # (AUTO) 6.4 K/uL (1.8-8.9); NEUTROPHILS % (AUTO) 86.3 % (43.0-81.0); PLATELET COUNT (AUTO) 171 K/uL (150-450); RED CELL DISTRIBUTION WIDTH 15.3 % (11.5-15.0); WHITE BLOOD COUNT (AUTO) 7.4 K/uL (4.3-11.0)
[2024-06-12 21:05] LABS: CALCIUM, SERUM 9.3 mg/dL (8.5-10.1); CARBON DIOXIDE 30 mmol/L (21-32); CHLORIDE 100 mmol/L (98-107); CREATININE 1.2 mg/dL (0.6-1.3); GLUCOSE 197 mg/dL (74-106); POTASSIUM 3.8 mmol/L (3.5-5.1); SODIUM SERUM 140 mmol/L (136-145); UREA NITROGEN, BLOOD 24 mg/dL (7-18)
[2024-06-12 21:26] LABS: ALANINE AMINOTRANSFERASE 29 U/L (12-78); ALBUMIN 3.6 g/dL (3.4-5.0); ALKALINE PHOSPHATASE 32 U/L (46-116); ASPARTATE AMINOTRANSFERASE 19 U/L (15-37); BILIRUBIN,DIRECT 0.1 mg/dL (0.0-0.2); BILIRUBIN,TOTAL 0.1 mg/dL (0.2-1.0); NT-PRO BNP 1259 pg/mL (0-125); TOTAL PROTEIN, SERUM 7.7 g/dL (6.4-8.2)
[2024-06-12 23:20] VITALS: BP 137/75; TEMP 99.1; O2SAT 96
[2024-06-12] MEDS ORDERED: MAG HYDROX/AL HYDROX/SIMETH 30 ML UDC PO PRN (23:30)
[2024-06-12] MEDS ORDERED: Z GUARD REMEDY 4 OZ OINT TP PRN (23:30)
[2024-06-12] MEDS ORDERED: ZOLPIDEM TARTRATE 5 MG TABLET PO PRN (23:30)
[2024-06-12] MEDS ORDERED: ALBUTEROL FS 2.5 MG/3 ML VIAL.NEB NEB PRN (23:30)
[2024-06-12] MEDS ORDERED: MAGNESIUM HYDROXIDE 30 ML UDC PO PRN (23:30)
[2024-06-12] MEDS ORDERED: ONDANSETRON HCL/PF 4 MG/2 ML VIAL IVP PRN (23:30)
[2024-06-12] MEDS: ENOXAPARIN SODIUM 40 MG/0.4 ML DISP.SYRIN SQ SCH (23:57)
[2024-06-13] VITALS (8 sets, daily range): BP systolic 124–149; BP diastolic 63–67; TEMP 98.3–99.7; O2SAT 95–98
[2024-06-13] MEDS: ACETAMINOPHEN 325 MG TABLET PO PRN (04:30)
[2024-06-13 06:34] LABS: BASOPHILS % (AUTO) 0.5 % (0.0-2.0); EOSINOPHILS # (AUTO) 0.1 K/uL (0.0-0.7); HEMATOCRIT 31 % (33-45); HEMOGLOBIN 10.5 g/dL (11.5-14.8); LYMPHOCYTES # (AUTO) 0.5 K/uL (0.8-4.8); LYMPHOCYTES % (AUTO) 8.4 % (20.0-44.0); MEAN CORPUSCULAR HEMOGLOBIN 31 PG (26.0-33.0); MEAN CORPUSCULAR HGB CONC 34 g/dl (31.0-36.0); MEAN CORPUSCULAR VOLUME 91 fL (82-100); MONOCYTES # (AUTO) 0.6 K/uL (0.1-1.30); MONOCYTES % (AUTO) 10.2 % (2.0-12.0); NEUTROPHILS # (AUTO) 4.7 K/uL (1.8-8.9); NEUTROPHILS % (AUTO) 79.9 % (43.0-81.0); PLATELET COUNT (AUTO) 150 K/uL (150-450); RED BLOOD CELL COUNT(AUTO) 3.38 MIL/uL (4.0-5.2); WHITE BLOOD COUNT (AUTO) 5.9 K/uL (4.3-11.0)
[2024-06-13 06:57] LABS: CALCIUM, SERUM 9.3 mg/dL (8.5-10.1); MAGNESIUM 1.7 mg/dL (1.8-2.4); PHOSPHORUS 3.9 mg/dL (2.5-4.9); POTASSIUM 3.6 mmol/L (3.5-5.1)
[2024-06-13] MEDS: PANTOPRAZOLE 40 MG TABLET.DR PO SCH (08:10)
[2024-06-13] MEDS ORDERED: IBAN150T16 PO (10:09)
[2024-06-13] MEDS ORDERED: PRED1TAB PO (10:09)
[2024-06-13] MEDS ORDERED: CLOB15OI3 TP (10:09)
[2024-06-13] MEDS ORDERED: ICOS1CAP PO (10:09)
[2024-06-13] MEDS ORDERED: SENN-261 PO (10:09)
[2024-06-13] MEDS ORDERED: MAGN400T26 PO (10:09)
[2024-06-13] MEDS ORDERED: AMLO-212 PO (10:09)
[2024-06-13] MEDS ORDERED: CAPS42.513 TP (10:09)
[2024-06-13] MEDS ORDERED: ALIR75PE SQ (10:09)
[2024-06-13] MEDS ORDERED: CELE200C PO (10:09)
[2024-06-13] MEDS ORDERED: ACET325T53 PO (10:09)
[2024-06-13] MEDS ORDERED: DICL100G26 TP (10:09)
[2024-06-13] MEDS ORDERED: CHOL100045 PO (10:09)
[2024-06-13 10:25] LABS: ABG BASE EXCESS 4.6 mmol/L (-2.0-3.0); ABG OXYGEN SATURATION 95.9 % (94.0-98.0); ABG PCO2 47.2 mmHg (32.0-45.0); ABG PH 7.419 (7.350-7.450); ABG PO2 81.9 mmHg (83.0-108.0); ABG TOTAL HEMOGLOBIN 11.7 G/dL (12.0-16.0); COHb 0.3 % (0.5-1.5); O2Hb 95.6 % (94.0-97.0); SITE, ABG RIGHT RADIAL
[2024-06-13] MEDS: MAGNESIUM OXIDE 400 MG TABLET PO ONE (11:22)
[2024-06-13] MEDS: MAGNESIUM OXIDE 400 MG TABLET PO SCH (11:30)
[2024-06-13] MEDS ORDERED: ACETAMINOPHEN 325 MG TABLET PO PRN (11:30)
[2024-06-13] MEDS ORDERED: methylPREDNISolone SOD SUCC 40 MG/ML VIAL IV SCH (11:30)
[2024-06-13] MEDS ORDERED: LEVALBUTEROL HCL NEB 1.25 MG/0.5 ML VIAL.NEB NEB SCH ×2 (12:00→18:00)
[2024-06-13] MEDS: CHOLECALCIFEROL 1,000 UNIT TABLET (VIT D3) PO SCH (12:00)
[2024-06-13] MEDS ORDERED: ALBUTEROL FS 2.5 MG/3 ML VIAL.NEB NEB SCH (12:00)
[2024-06-13] MEDS: ASPIRIN EC 81 MG TABLET.DR PO SCH (12:01)
[2024-06-13] MEDS: METOPROLOL TARTRATE 50 MG TABLET PO SCH (12:01)
[2024-06-13] MEDS: SENNOSIDES 8.6 MG TABLET PO SCH (12:01)
[2024-06-13] MEDS: LEVOTHYROXINE SODIUM 88 MCG TABLET PO SCH (12:01)
[2024-06-13] MEDS: AMLODIPINE BESYLATE 5 MG TABLET PO SCH (12:02)
[2024-06-13] MEDS: FUROSEMIDE 40 MG/4 ML VIAL IV SCH (12:02)
[2024-06-13] MEDS: CLOBETASOL 0.05% OINT 30 GM TUBE TP SCH (13:07)
[2024-06-13] MEDS: methylPREDNISolone SOD SUCC 125 MG/2ML VIAL IV SCH (13:07)
[2024-06-13] MEDS: LEVOFLOXACIN (250MG) 250 MG TABLET PO ONE (13:08)
[2024-06-13] MEDS: IPRATROPIUM NEB FS 0.5 MG/2.5 ML AMPUL.NEB NEB SCH ×2 (13:30→13:49)
[2024-06-13] MEDS: ALBUTEROL FS 2.5 MG/3 ML VIAL.NEB NEB SCH (13:49)
[2024-06-13] MEDS: BUDESONIDE RESPULE INH 0.25 MG/2 ML AMPUL.NEB NEB SCH (19:51)
[2024-06-13] MEDS: ATORVASTATIN 40 MG TABLET PO SCH (21:13)
[2024-06-14] VITALS (7 sets, daily range): BP systolic 99–153; BP diastolic 62–71; TEMP 97.5–98.3; O2SAT 94–98
[2024-06-14 06:16] LABS: BASOPHILS % (AUTO) 0.1 % (0.0-2.0); HEMATOCRIT 33 % (33-45); HEMOGLOBIN 11.1 g/dL (11.5-14.8); LYMPHOCYTES # (AUTO) 0.7 K/uL (0.8-4.8); LYMPHOCYTES % (AUTO) 13.5 % (20.0-44.0); MEAN CORPUSCULAR HEMOGLOBIN 30 PG (26.0-33.0); MEAN CORPUSCULAR HGB CONC 34 g/dl (31.0-36.0); MEAN CORPUSCULAR VOLUME 90 fL (82-100); MONOCYTES # (AUTO) 0.1 K/uL (0.1-1.30); NEUTROPHILS # (AUTO) 4.1 K/uL (1.8-8.9); NEUTROPHILS % (AUTO) 83.4 % (43.0-81.0); PLATELET COUNT (AUTO) 148 K/uL (150-450); RED BLOOD CELL COUNT(AUTO) 3.68 MIL/uL (4.0-5.2)
[2024-06-14 06:28] LABS: CALCIUM, SERUM 9.1 mg/dL (8.5-10.1); CREATININE 0.9 mg/dL (0.6-1.3); MAGNESIUM 1.6 mg/dL (1.8-2.4); POTASSIUM 3.8 mmol/L (3.5-5.1)
[2024-06-14] MEDS: LOSARTAN POTASSIUM 50 MG TABLET PO SCH (09:26)
[2024-06-14] MEDS: LEVOFLOXACIN (250MG) 250 MG TABLET PO SCH (13:21)
== END 2024-06-14 15:15 | disposition home health service (06) | DRG 189 ==
LOC: ER 20:10 → TELE 22:36
PROVIDERS: ADMIT Nurse Practitioner Family; ATTEND Nurse Practitioner Acute Care
DX: J96.01 Acute respiratory failure with hypoxia (principal); N17.0 Acute kidney failure with tubular necrosis; I50.33 Acute on chronic diastolic (congestive) heart failure; E66.2 Morbid (severe) obesity with alveolar hypoventilation; B34.9 Viral infection, unspecified; D64.9 Anemia, unspecified; E03.9 Hypothyroidism, unspecified; E78.5 Hyperlipidemia, unspecified; E83.42 Hypomagnesemia; I11.0 Hypertensive heart disease with heart failure; M19.90 Unspecified osteoarthritis, unspecified site; J06.9 Acute upper respiratory infection, unspecified; Z20.822 Contact with and (suspected) exposure to COVID-19; R73.9 Hyperglycemia, unspecified; E66.9 Obesity, unspecified; Z68.38 Body mass index [BMI] 38.0-38.9, adult; R74.8 Abnormal levels of other serum enzymes; J20.9 Acute bronchitis, unspecified
CPT/HCPCS: 36415; 71045-TC; 80048-TC; 80076-TC; 83735-TC; 83880; 84100-TC; 84484-TC; 85025-TC; 85378-TC; 93307-TC; 93970-TC; 94799-TC; G0378; J1650; J1940; J2919

== ENCOUNTER 2025-03-09 11:53 | Emergency (ER) | payer MEDICARE, OTHER ==
[~2025-03-09] VITALS: Ht 162.6 cm; Wt 93.0 kg
[~2025-03-09 11:53] MED LIST changes: +ACET325T53 PO; +ALIR75PE SQ; +AMLO-212 PO; -AMLO-213 PO; -ASCO500T22 PO; +CAPS42.513 TP; +CELE200C PO; +CHOL100045 PO; +CLOB15OI3 TP; +DICL100G26 TP; -ESOM40CA PO; -GABA300C PO; +IBAN150T16 PO; +ICOS1CAP PO; +MAGN400T26 PO; -PRED10TA PO; +PRED1TAB PO; +SENN-261 PO
[2025-03-09 12:05] VITALS: TEMP 98.1
[2025-03-09] MEDS ORDERED: DOXY100C2 PO (13:21)
[2025-03-09] MEDS ORDERED: CEPH-570 PO (13:21)
[2025-03-09 14:00] VITALS: BP 132/60
[2025-03-09 14:38] VITALS: O2SAT 99
== END 2025-03-09 14:31 | disposition home or self-care (01) ==
LOC: ER 11:53
DX: L97.518 Non-pressure chronic ulcer of other part of right foot with other specified severity (principal); E78.5 Hyperlipidemia, unspecified; I11.0 Hypertensive heart disease with heart failure; I50.9 Heart failure, unspecified; M19.90 Unspecified osteoarthritis, unspecified site; Z79.1 Long term (current) use of non-steroidal anti-inflammatories (NSAID); Z79.52 Long term (current) use of systemic steroids; Z79.82 Long term (current) use of aspirin; Z79.890 Hormone replacement therapy; Z79.899 Other long term (current) drug therapy; Z88.8 Allergy status to other drugs, medicaments and biological substances
CPT/HCPCS: 73630-TC